=== PATIENT | male | born 1955 | race Two or more races ===

== ENCOUNTER 2022-07-20 10:48 | Outpatient (CLI) | payer OTHER, SELFPAY ==
[2022-07-20 22:28] LABS: Albumin* 4.5 g/dL (3.3-5.0)
[2022-07-20 22:29] LABS: Chloride* 102 mmol/L (96-114); Potassium* 4.7 mmol/L (3.6-5.1); Sodium* 138 mmol/L (135-149)
[2022-07-20 22:31] LABS: Carbon Dioxide* 27 mmol/L (20-32); Cholesterol* 185 mg/dL (90-199); Creatinine* 0.6 mg/dL (0.5-1.5); Estimated Glomerular Filt Rate 106 ml/min
[2022-07-20 22:32] LABS: Alanine Aminotransferase* 52 U/L (4-50); Alkaline Phosphatase* 116 U/L (40-150); Aspartate Amino Transferase* 36 U/L (12-35); Blood Urea Nitrogen* 16 mg/dL (7-30); Calcium* 9.1 mg/dL (8.4-10.6); Glucose* 233 mg/dL (60-115); HDL Cholesterol* 38 mg/dL (>=40); LDL Cholesterol Calculated 119 mg/dL (<100); Microalbumin Urine 2 mg/dL; Total Protein* 7.5 g/dL (6.0-8.3); Triglycerides* 140 mg/dL (40-149)
[2022-07-20 22:39] LABS: Creatinine Urine 196.4 mg/dL; Microalbumin Creatinine Ratio 10 mg/g (0-30)
[2022-07-20 22:58] LABS: PSA Screen* 1.68 ng/mL (0.10-4.00)
== END 2022-07-20 10:49 | disposition home or self-care (01) ==
PROVIDERS: PCP Physician Assistant Medical; Visit Provider Physician Assistant Medical
DX: Z00.00 Encounter for general adult medical examination without abnormal findings (principal); I10 Essential (primary) hypertension; E78.5 Hyperlipidemia, unspecified; R79.89 Other specified abnormal findings of blood chemistry; Z12.5 Encounter for screening for malignant neoplasm of prostate
CPT/HCPCS: 80053; 80061; 82043; 82570; 84153

== ENCOUNTER 2023-04-11 08:15 | Outpatient (CLI) | payer OTHER, SELFPAY | END 2023-04-11 08:16 | disposition home or self-care (01) | PROVIDERS: PCP Physician Assistant Medical; Visit Provider Physician Assistant Medical | DX: R63.4 Abnormal weight loss (principal); I10 Essential (primary) hypertension; E78.5 Hyperlipidemia, unspecified; R79.89 Other specified abnormal findings of blood chemistry; E11.9 Type 2 diabetes mellitus without complications; D58.2 Other hemoglobinopathies | CPT/HCPCS: 80053; 80061; 82043; 82570; 82607 ==

== ENCOUNTER 2023-04-17 07:35 | Outpatient (CLI) | payer OTHER, SELFPAY | END 2023-04-17 07:36 | disposition home or self-care (01) | LOC: NFLDREF 04-18 11:40 | PROVIDERS: PCP Physician Assistant Medical; Referring Provider Physician Assistant Medical; Visit Provider Physician Assistant Medical | DX: D58.2 Other hemoglobinopathies (principal) | CPT/HCPCS: 82728; 82746; 83540; 83550 ==

== ENCOUNTER 2023-05-25 07:47 | Outpatient (CLI) | payer OTHER, SELFPAY | END 2023-05-25 07:48 | disposition home or self-care (01) | LOC: RAD 07:48 | PROVIDERS: PCP Physician Assistant Medical; Visit Provider Physician Assistant Medical | DX: R01.1 Cardiac murmur, unspecified (principal) | CPT/HCPCS: 93306 ==

== ENCOUNTER 2024-05-01 13:09 | Outpatient (CLI) | payer OTHER, SELFPAY | END 2024-05-01 13:10 | disposition home or self-care (01) | PROVIDERS: PCP Physician Assistant Medical; Visit Provider Physician Assistant Medical | DX: E78.5 Hyperlipidemia, unspecified (principal); E11.9 Type 2 diabetes mellitus without complications; I10 Essential (primary) hypertension; R79.89 Other specified abnormal findings of blood chemistry; Z12.5 Encounter for screening for malignant neoplasm of prostate | CPT/HCPCS: 80053; 80061; 82043; 82570; 82607; G0103 ==

== ENCOUNTER 2025-07-07 08:35 | Outpatient (CLI) | payer MEDICARE, MEDICAID, SELFPAY | END 2025-07-07 08:36 | disposition home or self-care (01) | LOC: NFLDREF 07-23 02:36 | PROVIDERS: PCP Physician Assistant Medical; Referring Provider Physician Assistant Medical; Visit Provider Physician Assistant Medical | DX: E11.65 Type 2 diabetes mellitus with hyperglycemia (principal); E78.5 Hyperlipidemia, unspecified; I10 Essential (primary) hypertension; R74.01 Elevation of levels of liver transaminase levels; Z79.84 Long term (current) use of oral hypoglycemic drugs; Z79.85 Long-term (current) use of injectable non-insulin antidiabetic drugs; Z13.21 Encounter for screening for nutritional disorder; Z12.5 Encounter for screening for malignant neoplasm of prostate; Z11.59 Encounter for screening for other viral diseases; Z11.4 Encounter for screening for human immunodeficiency virus [HIV] | CPT/HCPCS: 80053; 80061; 82043; 82570; 82607; 86703; 86803; G0103 ==